=== PATIENT | female | born 1945 | race African-American/Black ===

== ENCOUNTER 2025-03-06 12:57 | Outpatient (AMB) | payer MEDICARE, OTHER, SELFPAY ==
--- NOTE | 2025-03-06 12:59 | AM.OFFVISMDC ---
Intake Vital Signs 03/06/25 13:09 Height 5 ft 4 in Weight 149 lb 4 oz BMI 25.6 BP 124/66 Blood Pressure Location Lt brachial Position Sitting Respiration 16 Pulse 72 Pulse Source Pulse Oximeter Temp 97.1 F Temp Source Temporal Artery Scan Pulse Oximetry (%) 97 Oxygen Delivery Method Room Air Intake Visit Reasons: Annual JOSE-Satya pt, medicare wellness visit Senior It Engineer Required: No Accompanied by: Self / Same As Patient Allergies colistimethate sodium (From Coly-Mycin M) Allergy (Intermediate, Verified 03/06/25 13:05) Swelling nickel Allergy (Intermediate, Verified 03/06/25 13:08) Rash amoxicillin Adverse Reaction (Intermediate, Verified 03/06/25 13:08) Diarrhea fexofenadine (From Ruth) Adverse Reaction (Intermediate, Verified 03/06/25 13:08) Back Pain nuts Allergy (Severe, Uncoded 03/06/25 13:08) Anaphylaxis Medication List - Last Reconciled 03/06/25 by Tana Hernadez MD allopurinol 100 mg PO BID famotidine (Pepcid AC) 10 mg PO DAILY losartan-hydrochlorothiazide 50-12.5 mg 1 tab PO DAILY HPI HPI Comments History of Present Illness Details The patient is a 79 year old individual presenting to [facility] and for a Medicare wellness visit. Health Risk Assessment Completed. No cognitive deficits, no opioid use. Action Tremor: The patient reports developing shaky handwriting in both the right and left hands over the past few months, making it difficult to write legibly. The patient experiences physical nervousness and shakiness when preparing to sign their name, which is exacerbated by feeling anxious or being watched, leading to avoidance of signing documents in public. The patient does not experience shakiness when performing other fine motor tasks like lifting a cup or buttoning a shirt. Anxiety and Stress: The patient reports that her mood has been 'so-so' due to significant worry about their 14-year-old great-granddaughter's unstable and concerning living environment. This stress stays on the patient's mind constantly, causing the patient to wake up thinking about it. The patient engages in ministry work and walking, and has a supportive friend network. Constipation: The patient reports that MiraLax was not working well for constipation, so the patient switched to Metamucil, which has been very effective. The patient initially took it daily but now requires it less often as their bowel movements have regulated. Gout: The patient has a history of gout and reports no recent flares. The patient is taking allopurinol for management. Hypertension: The patient has a history of hypertension. The patient denies any recent headaches. Prediabetes: The patient has a history of borderline high blood sugars in the prediabetic range. Low Back Pain: The patient reports another problem of pain in the lower back, specifically on the left side, which was attributed to arthritis by a chiropractor. The patient describes the pain as sometimes feeling tight and stiff, and sees a chiropractor for it approximately every six weeks. Updates to Surgical History: - Right carpal tunnel surgery on November 27 done at [facility] Family History: - Denies any known family history of Parkinson's disease. [facility], [facility] Medical History (Updated 03/06/25 @ 17:29 by Tana Hernadez MD) Routine medical exam Worsened handwriting Micrographia Gout Cerebral arterial aneurysm Impaired fasting glucose Osteoarthritis Primary hypertension Surgical History (Updated 03/06/25 @ 12:54 by Tana Hernadez MD) H/O right knee surgery S/P MONTY-BSO History of appendectomy Family History (Updated 03/06/25 @ 12:55 by Tana Hernadez MD) Father Brain tumor Sister Breast cancer Bladder cancer Other Diabetes mellitus Primary hypertension Questionnaire Medicare Wellness Checkup What [age]?: [age] What gender do you identify with?: female During the past 4 weeks, how much have you been bothered by emotional problems such as feeling anxious, depressed, irritable, sad or downhearted, and blue?: moderately During the past 4 weeks, has your physical & emotional health limited your social activities with family, friends, neighbors, or groups?: not at all During the past 4 weeks, how much bodily pain have you generally had?: mild pain During the past 4 weeks, was someone available to help you if you needed & wanted help?: no, not at all During the past 4 weeks, what was the hardest physical activity you could do for at least 2 minutes?: moderate Can you get to places out of walking distance without help? (For eg., can you travel alone on buses, taxis or drive your car?): Yes Can you go shopping for groceries or clothes without someone's help?: Yes Can you prepare your own meals?: Yes Can you do your housework without help?: Yes Because of any health problems, do you need the help of another person with your personal care needs such as eating, bathing, dressing or getting around the house?: No Can you handle your own money without help?: Yes During the past 4 weeks, how would you rate your health in general?: good During the past 4 weeks how have things been going for you?: pretty well Are you having difficulties driving your car?: no Do you always fasten your seat belt when you are in a car?: yes, usually During past 4 weeks, have you been bothered by the following: never: Falling or dizzy when standing up, Sexual problems?, Trouble eating well?, Teeth or denture problems? and Problems using the telephone? and seldom: Tiredness or fatigue? Have you fallen 2 or more times in the past year?: No Are you afraid of falling?: Yes Are you a smoker?: no During the past 4 weeks, how many drinks of wine, beer, or other alcoholic beverages did you have?: no alcohol at all Do you exercise for about 20 minutes 3 or more times a week?: yes, most of the time Have you been given information to help with the following?: yes: Hazards in your house that might hurt you? and yes: Keeping track of your medications? How often do you have trouble taking medicines the way you have been told to take them?: I always take medicine as prescribed How confident are you that you can control & manage most of your health problems?: somewhat confident What is your race?: Black or PHQ-9 Over the last 2 weeks, how often have you been bothered by any of the following problems? 1. Little interest or pleasure in doing things: more than half the days 2. Feeling down, depressed, or hopeless: not at all 3. Trouble falling or staying asleep, or sleeping too much: not at all 4. Feeling tired or having little energy: not at all 5. Poor appetite or overeating: not at all 6. Feeling bad about yourself - or that you are a failure or have let yourself or your family down: not at all 7. Trouble concentrating on things, such as reading the newspaper or watching television: not at all 8. Moving or speaking so slowly that other people could have noticed. Or the opposite - being so fidgety or restless that you have been moving around a lot more than usual: not at all 9. Thoughts that you would be better off or of hurting yourself in some way: not at all Total score: 2 Depression Screening Interpretation: Negative Depression Screening Done: Yes 88506 - PHQ-9 Billing: Yes Source: Developed by Drs. Mohamud Flores, Diane Antoine, Keith Trinidad and colleagues, with an educational jadiel from [employer]. Thrive Questionnaire Date Thrive assessed: 03/06/25 I am a: Patient What is your living situation today?: I have a steady place to live Within the past 12 months, did the food you bought not last and you didn't have the money to get more?: Never true Within the past 12 months, did you worry whether your food would run out before you got money to buy more?: Never true Do you have trouble paying for medicines?: No Do you have trouble getting transportation to medical appointments?: No Do you have trouble paying your heating and electricity bill?: No Do you have trouble taking care of your child, family member or friend?: No Do you have trouble with day-to-day activities such as bathing, preparing meals, shopping, managing finances, etc.?: No Are you currently unemployed and looking for a job?: No Are you interested in more education?: No Please select the resources that you would like help with: Utilities and None Currently or been in a relationship where the following occur: No concerns reported THRIVE Score: 0 CHRISTEN-7 AMB Questionnaire CHRISTEN-7 Date CHRISTEN - 7 assessed: 03/06/25 Feeling nervous, anxious, or on edge: 0 = Not at all Not being able to stop or control worryin = Not at all Worrying too much about different things: 0 = Not at all Trouble relaxin = Not at all Being so restless that it is hard to sit still: 0 = Not at all Becoming easily annoyed or irritable: 0 = Not at all Feeling afraid as if something awful might happen: 0 = Not at all Total CHRISTEN-7 score (0-4 normal; 5-9 mild; 10-14 moderate; 15-21 severe): 0 Source: Developed by Drs. Mohamud Flores, Diane Antoine, Keith Trinidad and colleagues, with an educational jadiel from [employer]. AUDIT C Alcohol Use Questionnaire (AUDIT-C) 1. How often do you have a drink containing alcohol?: Monthly or less 2. How many drinks containing alcohol do you have on a typical day when you are drinking?: 1 or 2 3. How often do you have six or more drinks on one occasion?: Never Total Score: 1 Review of Systems Narrative Review of Systems - Gastrointestinal: Reports constipation, which is managed with Metamucil. - Denies abdominal pain. - Cardiovascular: Denies shortness of breath, chest pain, and leg swelling. - Psychiatric: per hpi - Neurological: Reports shaky handwriting in both hands for the past few months, which is worse under pressure. - Denies headaches, trouble swallowing, or issues with concentration. - Musculoskeletal: Reports residual pain in the right hand post-surgery and pain in the left lower back. Physical Exam Exam Exam: Physical Exam - Cognitive: Clock draw test was excellent. - Patient recalled 3/3 words. - Lungs: Clear to auscultation bilaterally, no wheezing. - Cardiovascular: Normal heart sounds with a very soft murmur. - Carotid arteries were clear with no bruits. - Abdomen: Soft, non-tender, non-distended, with normal bowel sounds. - Neurological: No resting tremor on hand extension. - Action tremor noted with writing. - Musculoskeletal: Tenderness to palpation of the left lower paraspinal muscles. - Extremities: No edema in the lower extremities. Vital Signs: Last Vital Signs Temp 97.1 F 03/06/25 13:09 Pulse 72 03/06/25 13:09 Resp 16 03/06/25 13:09 BP 124/66 03/06/25 13:09 Pulse Ox 97 03/06/25 13:09 Oxygen Delivery Method Room Air 03/06/25 13:09 BMI result Body Mass Index 25.6 Assessment & Plan Assessment & Plan (1) Routine medical exam: Code(s): Z00.00 - Encounter for general adult medical examination without abnormal findings (2) Primary hypertension: Code(s): I10 - Essential (primary) hypertension (3) Impaired fasting glucose: Code(s): R73.01 - Impaired fasting glucose (4) Gout: Code(s): M10.9 - Gout, unspecified Qualifiers: Gout site: unspecified site Gout etiology: unspecified cause Chronicity: unspecified Qualified Code(s): M10.9 - Gout, unspecified Plan Assessment and Plan 1. Medicare Wellness Visit/Health Maintenance - Plan includes ordering fasting labs for diabetes and cholesterol screening, as well as checking kidney function, liver function, and blood counts. - A urine microalbumin test will also be ordered. - Will follow up in 6 months, or sooner if needed. 2. Action Tremor - The patient reports a new onset of shaky handwriting in both hands for several months, which is causing distress and is worse with pressure or anxiety. - A referral will be placed to neurology for further evaluation by a movement disorder specialist. 3. Hypertension - Stable. - The patient will continue the current regimen of losartan-HCTZ 50/12.5 mg daily. 4. Gout - Well-controlled with no recent flares. - The patient will continue allopurinol 100 mg twice daily 5. Constipation - Well-managed. - The patient will continue using Metamucil as needed. 6. Low Back Pain - The patient has tenderness in the left lower paraspinals, possibly due to muscle spasm or arthritis. - Recommended conservative management with heating pads, stretching, and topical rubs. - The patient will continue with inpatient care manager rn and monitor for worsening symptoms. 7. Heart Murmur - An incidental finding of a very soft, benign-sounding murmur was noted on exam. - Educated the patient on the finding and red flag symptoms (shortness of breath, chest pain, leg swelling) for which to seek care. - No further workup is needed at this time. Plan - Orders placed for fasting labs, including a lipid panel, diabetes screening (A1c), kidney function, liver function, and a complete blood count. - An order for a urine microalbumin test will also be placed. - Referral to Neurology for evaluation of a new-onset action tremor and shaky handwriting. - Continue allopurinol 100 mg twice daily for gout. - Continue losartan-hydrochlorothiazide 50/12.5 mg daily for hypertension. - Continue famotidine (Pepcid) as needed for heartburn. - Continue Metamucil as needed for constipation. - Follow up in 6 months Discussion Notes We discussed the patient's new complaint of shaky handwriting. I explained that this warrants further investigation and that I will be placing a referral to a neurology. I outlined the plan for laboratory testing, including fasting bloodwork to screen for diabetes and cholesterol, and to check kidney and liver function, as well as a urine test. Patient Instructions - Please call your former orthopedic and surgical offices (from [facility] and [facility]) and ask them to fax all your records to our office. - You will need to get fasting blood work done. - Please do not eat or drink anything except water for 8-10 hours before the test. - For your low back pain, you may use heating pads, do gentle stretching, and apply topical rubs. - Call the office if you experience new or worsening shortness of breath, chest pain, or leg swelling. Orders: Orders Comprehensive Met. Panel Today I10 - Essential (primary) hypertension, M10.9 - Gout, unspecified, R73.01 - Impaired fasting glucose Complete Blood Count Auto Diff Today I10 - Essential (primary) hypertension, M10.9 - Gout, unspecified, R73.01 - Impaired fasting glucose Lipid Panel Today I10 - Essential (primary) hypertension, M10.9 - Gout, unspecified, R73.01 - Impaired fasting glucose Hemoglobin A1c Today I10 - Essential (primary) hypertension, M10.9 - Gout, unspecified, R73.01 - Impaired fasting glucose Uric Acid Today I10 - Essential (primary) hypertension, M10.9 - Gout, unspecified, R73.01 - Impaired fasting glucose Microalbumin, Random (w Creat) Today I10 - Essential (primary) hypertension, M10.9 - Gout, unspecified, R73.01 - Impaired fasting glucose TSH reflex Free T4 Today I10 - Essential (primary) hypertension, M10.9 - Gout, unspecified Referrals Neurology Referral R27.8 - Other lack of coordination Medications: New losartan-hydrochlorothiazide 50-12.5 mg 1 tab PO DAILY 90 tabs 3RF psyllium husk (Metamucil) mix into at least 8 oz of water or juice before administering 1 tbsp PO DAILY PRN allopurinol 100 mg PO BID 180 tabs 3RF Quality Reporting (2019) Depression/Bipolar (159/160/161/177) PHQ-9: Total score: 2 Coding Level of Care Code Medicare Subsequent (G0439) Diagnoses Routine medical exam Z00.00 Primary hypertension I10 Impaired fasting glucose R73.01 Gout, unspecified cause, unspecified chronicity, unspecified site M10.9 Gout site: unspecified site Gout etiology: unspecified cause Chronicity: unspecified Additional Codes PHQ-9 - 19853 - PHQ-9 Billing: Yes ([id number])
[2025-03-06 13:09] VITALS: BP 124/66; PULSE 72; RESP 16; TEMP 36.2; O2SAT 97; BMI 25.6
--- OUTSIDE RECORDS SUMMARY | 2025-03-06 13:20 | XMS_ITS | Clinical Summary ---
Author Organization [facility] Address [address] [place] [address] Care Team Providers Care Ctc Operator Name Role Phone Tana Hernadez MD Primary Care Provider [phone] Allergies No known active allergies Medications HYDROcodone-sasha taminophen (NORCO) 5-325 mg per tabletIndicatio ns:Carpal tunnel syndrome of right wrist Take 1 tablet by mouth 4 times daily (every 6 hours) as needed for severe pain. Max Daily Amount: 4 tablets 10 tablet 11/26/2024 Active Encounters Date Type Department Care Team Description 01/21/2025 11:00 AM [place] [address] Massimo Villegas MD Carpal tunnel syndrome of right wrist (Primary Dx) 12/10/2024 11:15 AM [place] [address] Lisseth Miller PA Carpal tunnel syndrome of right wrist (Primary Dx) from Last 3 Months Social History Tobacco Use Types Packs/Day Years Used Date Smoking Tobacco: Never Assessed Comments Unknown Sex and Gender Information Value Date Recorded Sex Assigned at Female 09/25/2024 1:54 PM EDT Legal Sex Female 1:16 PM EDT Gender Identity Female 09/25/2024 1:54 PM EDT Sexual Orientation Asexual 09/25/2024 1: 54 PM EDT Plan of Treatment Health Maintenance Due Date Last Done Comments Advance Care Planning 1945 Hepatitis C Virus Screening 1945 DTaP/Tdap/Td Vaccines (1 - Tdap) 1964 Pneumococcal Vaccines 50+ (1 of 1 - PCV) 1995 Zoster (Shingles) Vaccine (1 of 2) 1995 DXA Bone Density (Females,Ages 65 and older) 2010 RSV Vaccine 50 years and older and Patients (1 - 1-dose 75+ series) 2020 Influenza Vaccine 11/14/2024 01/21/2024, , 12/26/2021, Additional history exists COVID-19 Vaccine (2024- season) 2024 06/11/2023, 03/01/2021, 01/21/2021, Additional history exists Hepatitis B Vaccines Aged Out No long er eligible based on patient's age to complete this topic Insurance MEDICARE PART A & B [facility] SUPPLEMENT ONLY Care Teams Ctc Operator Relationship Specialty Start Date End Date Tana Hernadez MD [address] [place] [address] PCP - General Internal Medicine 10/01/24
--- OUTSIDE RECORDS SUMMARY | 2025-03-06 13:20 | XMS_ITS | Encounter Summary ---
Author Organization [facility] Address [address] [address] Phone Care Team Providers Care Wetlands Conservation Laborer Name Role Phone Марина Huerta MD Primary Care Provider Encounter Details Date Type Department Care Team (Late st Contact Info) Description 03/15/2021 Transcribe Orders Virtual Department [address] [place] [id number] Марина [place] [address] [email or web address] Left shoulder pain, unspecified chronicity (Primary Dx) Social History Tobacco Use Types Packs/Day Years Used Date Smoking Tobacco: Never Assessed Comments Unknown Sex and Gender Information Value Date Recorded Sex Assigned at Female 08/11/2022 2:41 PM EDT Legal Sex Female 3:30 PM EST Gender Identity Female 08/11/2022 2:41 PM EDT Sexual Orientation Not on file documented as of this encounter Plan of Treatment Not on file documented as of this encounter Visit Diagnoses Diagnosis Left shoulder pain, unspecified chronicity- Primary documented in this encounter Care Teams Wetlands Conservation Laborer Relationship Specialty Start Date End Date Мар[place] [id number] [email or web address] PCP - General Internal Medicine 03/24/21 documented as of this encounter Additional Source Comments The information contained in this document represents components of the legal health record. It is not the complete legal health record.[facility]
--- OUTSIDE RECORDS SUMMARY | 2025-03-06 13:20 | XMS_ITS | Clinical Summary ---
Author Organization [facility] Address [address] [facility] [address] [place] [address] Phone Care Team Providers Care Sugarcane Planter Name Role Phone Марина Huerta MD Primary Care Provider Allergies Active Allergy Reactions Criticality Noted Date Comments Rlkekdex-Wydeye-Se-Thonzonium 2022 Medications hydroCHLOROthia zide (MICROZIDE) 12.5 mg capsule Take 12.5 mg by mouth daily. Active lidocaine (LIDODERM) 5 % Place 1 patch onto the skin daily. Remove & Discard patch within 12 hours or as directed by MD 30 patch 08/11/2022 Active Social History Tobacco Use Types Packs/Day Years Used Date Smoking Tobacco: Never Assessed Education Answer Date Recorded Are you interested in more education? Not on edin e 08/11/2022 Are you concerned about learning? Not on file 08/11/2022 No 08/11/2022 No 08/11/2022 Digital Access Answer Date Recorded No 09/12/2022 No 09/12/2022 Reliable internet access at home? Not on file 09/12/2022 Device with a working camera? Not on file Intimate Partner Violence Answer Date R ecorded Are you denied basic needs s uch as food, clothing, or medical care? No 08/11/2022 In the past 12 months have y ou been in a relationship with a person who hurts, threatens, or tries to control you? No 08/11/2022 Are you denied basic needs s uch as food, clothing, or medical care? No 08/11/2022 In the past 12 months have y ou been in a relationship with a person who hurts, threatens, or tries to control you? No 08/11/2022 Comments Unknown Sex and Gender Information Value Date Recorded Sex Assigned at Female 08/11/2022 2:41 PM EDT Legal Sex Female 3:30 PM EST Gender Identity Female 08/11/2022 2:41 PM EDT Sexual Orientation Not on file Last Filed Vital Signs Vital Sign Reading Time Taken Comments Blood Pressure 148/72 08/11/2022 7:58 PM EDT Pulse 71 08/11/2022 4:52 PM EDT Temperature 36.3 C (97.3 F) 08/11/2022 3:00 PM EDT Respiratory Rate 18 08/11/2022 7:58 PM EDT Oxygen Saturation 98% 08/11/2022 7:58 PM EDT Inhaled Oxygen Concentration - - Weight 61.2 kg (135 lb) 08/11/2022 2:37 PM EDT Height 162.6 cm (5' 4 ) 08/11/2022 2:37 PM EDT Body Mass Index 23.17 08/11/2022 2:37 PM EDT Plan of Treatment Health Maintenance Due Date Last Done Comments LIPID PANEL 1945 POTASSIUM LEVEL 1945 DEPRESSION SCREENING 1957 SMOKING Hx and SMOKELESS TOBACCO SCREENING 1958 HEPATITIS C SCREENING 1963 ZOSTER VACCINES (1 of 2) 1995 OSTEOPOROSIS SCREENING INITI AL (ONE-TIME) 2010 PNEUMOCOCCAL VACCINES (50+ years) (2 of 2 - PCV) 07/13/2011 07/12/2010 RSV VACCINE (1 - 1-dose 75+ series) 2020 Adult Td,Tdap Booster 01/10/2021 01/10/2011 INFLUENZA VACCINE (#1) 2024 4, 01/28/2013 COVID-19 VACCINE ( - 2024-2 6 season) 2024 HEPATITIS A VACCINES Aged Out No long er eligible based on patient's age to complete this topic HIB VACCINES Aged Out No longer eligi ble based on patient's age to complete this topic MENINGOCOCCAL VACCINES (ACWY) Aged Out No longer eligible based on patient's age to complete this topic MENINGOCOCCAL VACCINES (B) Aged Out N o longer eligible based on patient's age to complete this topic Medical Devices Not on file Insurance [facility] MEDICARE SUPPLEMENT [place] [id number] Care Teams Sugarcane Planter Relationship Specialty Start Date End Date Марина Huerta MD [address] [place] [address] [place] [address] [email or web address] PCP - General Internal Medicine 03/24/21 Additional Source Comments The information contained in this document represents components of the legal health record. It is not the complete legal health record.[facility]
--- OUTSIDE RECORDS SUMMARY | 2025-03-06 13:20 | XMS_ITS | Encounter Summary ---
Author Organization [facility] Address [address] [place] [address] Care Team Providers Care Warning Analyst Name Role Phone Tana Hernadez MD Primary Care Provider +1- [phone] Encounter Details Date Type Department Care Team (Late st Contact Info) Description 11/27/2024 Scanned Document [facility] [address] [id number] Massimo Villegas MD [address] [place] [id number] Social History Tobacco Use Types Packs/Day Years Used Date Smoking Tobacco: Never Assessed Comments Unknown Sex and Gender Information Value Date Recorded Sex Assigned at Female 09/25/2024 1:54 PM EDT Legal Sex Female 1:16 PM EDT Gender Identity Female 09/25/2024 1:54 PM EDT Sexual Orientation Asexual 09/25/2024 1: 54 PM EDT documented as of this encounter Plan of Treatment Not on file documented as of this encounter Visit Diagnoses Not on filedocumented in this encounter Care Teams Warning Analyst Relationship Specialty Start Date End Date Tana Hernadez MD [address] [place] [address] PCP - General Internal Medicine 10/01/24 documented as of this encounter
--- OUTSIDE RECORDS SUMMARY | 2025-03-06 13:20 | XMS_ITS | Clinical Summary ---
Author Organization [facility] Address [address] [place] [address] Care Team Providers Care Developer Prover Upholstering Name Role Phone Tana Hernadez MD Primary Care Provider +1- [phone] Allergies Active Allergy Reactions Criticality Noted Date Comments Amoxicillin Diarrhea 05/11/2021 Colistimethate 08/10/2020 Other reaction(s): Not available Patient denies Fexofenadine 05/11/2021 Other reaction(s): Low back pain Rwaflxxz-Vefskx-Yj-Thonz onium Hives,Swelling,Rash Low 08/11/2022 Swelling in her Ear Nickel Rash Low 11/30/2022 Nuts Anaphylaxis,Hives,O ther (See Comments) High 05/11/2021 peanuts Medications Medication Sig Dispensed Refills Start Date End Date Status allopurinol (ZYLOPRIM) 100 MG tablet 1 tablet (100 mg total) 2 (two) times a day. 0 08/02/2020 Active losartan-hydrochlorot hiazide (HYZAAR) 50-12.5 MG per tablet Take 1 tablet by mouth daily. 0 06/05/2020 Active famotidine (PEPCID) 20 MG tablet Take 1 tablet (20 mg total) by mouth 2 (two) times a day. 0 Active Multiple Vitamin (MULTI VITAMIN DAILY PO) Take by mouth. 0 Active Acetaminophen (TYLENOL ARTHRITIS PAIN PO) Take 2 tablets by mouth every 8 (eight) hours. 0 Active LORazepam (ATIVAN) 0.5 MG tablet TAKE 1 TABLET EVERY DAY BY ORAL ROUTE NEEDED. 0 Active mirtazapine (REMERON) 15 MG tablet TAKE 1/2 TABLET DAILY BY MOUTH 0 05/23/2023 Active Calcium Carb-Cholecalciferol (CALCIUM 600+D3 PO) Take 2 tablets by mouth 2 (two) times a day. 0 Active aspirin EC 81 MG EC tablet Take 1 tablet (81 mg total) by mouth 2 (two) times a day after meals. 56 tablet 0 07/20/2023 Active meloxicam (MOBIC) 7.5 MG tablet Take 1 tablet (7.5 mg total) by mouth daily. 14 tablet 0 07/20/2023 Active methocarbamol (ROBAXIN) 750 MG tablet Take 1 tablet (750 mg total) by mouth every 6 (six) hours as needed. 45 tablet 0 07/20/2023 Active oxyCODONE (ROXICODONE) 5 MG immediate release tablet Take 1 tablet (5 mg total) by mouth every 4 (four) hours as needed. 32 tablet 0 07/20/2023 Active senna-docusate (PERICOLACE) 8.6-50 MG Take 1 tablet by mouth 2 (two) times a day. 20 tablet 0 07/20/2023 Active tranexamic acid (LYSTEDA) 650 MG tablet Take 3 tablets (1,950 mg total) by mouth daily. 6 tablet 0 07/20/2023 Active Active Problems Problem Noted Date Diagnosed Date Osteoarthritis of right knee 07/19/2023 History of gastroesophageal reflux (GERD) 2022 History of hypertension 11/30/2022 Gout 11/30/2022 Anemia 11/30/2022 Osteoarthritis of left knee 11/30/2022 Nonruptured cerebral aneurysm 11/30/2022 Family History Medical History Relation Name Comments Diabetes Brother Diabetes Mother Cancer Sister Relation Name Status Comments Brother Father (Age 30's) brain tu mor Mother (Age 86) MVA Sister Social History Tobacco Use Types Packs/Day Years Used Date Smoking Tobacco: Never Smokeless Tobacco: Never Tobacco Cessation:Counseling Given: Not Answered Alcohol Use Standard Drinks/Week Comments Not Currently 0 (1 standard drink = 0.6 oz pur e alcohol) Sex and Gender Information Value Date Recorded Sex Assigned at Female 11/23/2022 9:30 AM EDT Gender Identity Female 11/23/2022 9:30 AM EDT Sexual Orientation Not on file Job Start Date Occupation Industry Not on file Not on file Not on file Last Filed Vital Signs Vital Sign Reading Time Taken Comments Blood Pressure 133/68 07/20/2023 7:49 AM EDT Pulse 73 07/20/2023 7:49 AM EDT Temperature 36.8 C (98.2 F) 07/20/2023 7:49 AM EDT Respiratory Rate 17 07/20/2023 7:49 AM EDT Oxygen Saturation 98% 07/20/2023 7:49 AM EDT Inhaled Oxygen Concentration - - Weight 61.7 kg (136 lb) 07/19/2023 7:45 AM EDT Height 156.2 cm (5' 1.5 ) 07/19/2023 7:45 AM EDT Body Mass Index 25.28 07/19/2023 7:45 AM EDT Plan of Treatment Health Maintenance Due Date Last Done Comments Hepatitis C Screening 1945 COVID-19 Vaccine (#1) 1945 Depression Screening 1957 Preventative Health Evaluation 1963 Shingrix-Zoster Vaccine (1 o f 2) 1995 Fall Risk Assessment 2010 Osteoporosis Screening (DEXA Scan) 2010 DTap / Tdap / Td (1 - Tdap) 01/11/2011 01/10/2011 Pneumococcal Vaccine (2 of 2 - PCV) 07/13/2011 07/12/2010 RSV Adult > 60+ Yrs or (1 - 1-dose 75+ series) 2020 Influenza Vaccine (#1) 2024 4, 01/28/2013 Hepatitis B Vaccines Aged Out No long er eligible based on patient's age to complete this topic RSV Ped < 20 months Aged Out No longe r eligible based on patient's age to complete this topic Medical Devices Implanted Type Area Workforce Development Assistant Device Identifier Shelf Expiration Date Model / Serial / Lot Journey Nonporpus Tibial Baseplate Size 2, Left Implanted:Qty : 1 on 12/25/2022 by Jair Elizondo MD [place] [facility] [place] [facility] Total Joint Left: Knee [id number] 03/31/2032 / / [id number] Journey Ii Size 3-4 , Right 10mm Deep [facility] Articular Insert Implanted:Qty : 1 on 07/19/2023 by Jair Elizondo MD at [facility] [place] [facility] Total Joint Right: Knee [id number] 12/17/2032 / / [id number] Cement Bone Surg Simplex Radiopq Stry-Howm 7863-5-201-11 4092 - [id number] Implanted:Qty : 1 on 12/25/2022 by Jair Elizondo MD at [facility] [place] [facility] Left: Knee [employer] [id number] 02/13/2025 6191- / / [id number] Cement Bone Surg Simplex Radiopq Stry-How 5990-2-554-11 409 - [id number] Implanted:Qty : 1 on 12/25/2022 by Jair Elizondo MD at [facility] [place] [facility] Left: Knee [employer] [id number] 02/13/2025 6191- / / [id number] Knee Patella Ovl 29x8.5mm [facility] [id number] 60 - [id number] Implanted:Qty : 1 on 12/25/2022 by Jair Elizondo MD at [facility] [place] [facility] Left: Knee [employer] [id number] 06/27/2032 [id number] / / [id number] Cr Fem Ox Pot Puncher Lt Sz 4 [facility] [id number] 13 - [id number] Implanted:Qty : 1 on 12/25/2022 by Jair Elizondo MD at [facility] [place] [facility] Left: Knee [employer] [id number] 01/12/2030 [id number] / / [id number] Journey Deep [facility] Articular Insert Implanted:Qty : 1 on 12/25/2022 by Jair Elizondo MD at [facility] [place] [facility] Left: Knee [employer] 07/21/2028 [id number] / / [id number] Cr Fem Ox Pot Puncher Rt Sz 3 [facility] 98793232-9729 09 - [id number] Implanted:Qty : 1 on 07/19/2023 by Jair Elizondo MD at [facility] [place] [facility] Right: Knee [employer] [id number] 11/05/2032 [id number] / / [id number] Knee Patella Ovl 29x8.5mm [facility] [id number] 60 - [id number] Implanted:Qty : 1 on 07/19/2023 by Jair Elizondo MD at [facility] [place] [facility] Right: Knee [employer] [id number] 03/12/2033 [id number] / / [id number] Knee Bsplt Tib Jrny Npor Rt 3 [facility] 73962767-9102 35 - [id number] Implanted:Qty : 1 on 07/19/2023 by Jair Elizondo MD at [facility] [place] [facility] Right: Knee [employer] 03/02/2033 [id number] / / [id number] Cement Bone Surg Simplex Radiopq Stry-Howm 8197-3-337-11 4092 - [id number] Implanted:Qty : 1 on 07/19/2023 by Jair Elizondo MD at [facility] [place] [facility] Right: Knee [employer] [id number] 04/15/2025 6191-1-010 / / [id number] Cement Bone Surg Simplex Radiopq Stry-Howm 8297-7-491-11 4092 - [id number] Implanted:Qty : 1 on 07/19/2023 by Jair Elizondo MD at [facility] [place] [facility] Right: Knee [employer] [id number] 04/15/2025 6191-1-010 / / [id number] Explanted Type Area Workforce Development Assistant Device Identifier Shelf Expiration Date Model / Serial / Lot Journey Articular Insert Explanted:Qty: 1 on 12/25/2022 by Jair Elizondo MD at [facility] [place] [facility] Left: Knee [employer] 07/15/2023 [id number] / / [id number] Advance Directives For more information, please contact: [phone] Documents on File Type Date Recorded Patient Tank Operator Expl anation Advance Directive and Living Will 11/30/2022 12:00 AM Health Care Proxy Advance Directive and Living Will 12/25/2022 HEALTH CARE PROXY NO BLOOD PRODUCTS JEHOVAH WITNESS Latest Code Status on File Code Status Date Activated Date Inactivated Comments Full Code 07/19/2023 8:07 AM 07/20/2023 8:35 PM This co de status was ascertained in the following way: discussion with patient . Code Status History Code Status Date Activated Date Inactivated Comments Full Code 07/19/2023 7:10 AM 07/19/2023 8:07 AM This co de status was ascertained in the following way: discussion with healthcare technical services representative . Full Code 12/25/2022 2:00 PM 12/27/2022 1:30 AM This code status was ascertained in the following way: discussion with patient . Full Code 12/25/2022 7:56 AM 12/25/2022 2:00 PM This code status was ascertained in the following way: discussion with patient . Care Teams Developer Prover Upholstering Relationship Specialty Start Date End Date Tana Hernadez MD [address] [place] [address] PCP - General Internal Medicine 07/18/23
--- OUTSIDE RECORDS SUMMARY | 2025-03-06 13:20 | XMS_ITS | Clinical Summary ---
Author Organization [facility] Address [address] [place] [address] Care Team Providers Care Shearer Operator Name Role Phone Tana Hernadez MD Primary Care Provider +1- [phone] Surgical History Surgery Date Site/Laterality Comments KNEE SURGERY PROCEDURE:KNEE SURGERY APPENDECTOMY PROCEDURE:APPENDECTOMY HYSTERECTOMY PROCEDURE:HYSTERECTOMY TOTAL KNEE ARTHROPLASTY 12/25/2022 Left PROCEDURE:TOTAL KNEE ARTHROPLASTY;COMMENT:Procedur e: REPLACEMENT TOTAL KNEE; Surgeon: Jair Elizondo MD; [facility] Service: Orthopedics; Laterality: Left; COLONOSCOPY PROCEDURE:COLONOSCOPY UPPER GASTROINTESTINAL ENDOSCOPY PROCEDURE:UPPER GASTROINTESTINAL ENDOSCOPY TOTAL KNEE ARTHROPLASTY 07/19/2023 Right PROCEDURE:TOTAL KNEE ARTHROPLASTY;COMMENT:Procedur e: TOTAL KNEE ARTHROPLASTY WITH CORI NAVIGATION; Surgeon: Jair Elizondo MD; Location: [facility]); Service: Orthopedics; Laterality: Right; Medical History Medical History Date Comments Anemia DX:Anemia Gout DX:Gout Hypertension DX:Hypertension Osteoporosis DX:Osteoporosis GERD (gastroesophageal reflux disease) DX:GERD (gastroesophageal reflux disease) Nonruptured cerebral aneurysm DX :Nonruptured cerebral aneurysm;COMMENT:dx 8 years ago Peripheral neuropathy DX:Periphe ral neuropathy;COMMENT:right hand Family History Medical History Relation Name Comments Diabetes Brother Diabetes Mother Cancer Sister Relation Name Status Comments Brother Father (Age 30's) brain tu mor Mother (Age 86) MVA Sister Social History Tobacco Use Types Packs/Day Years Used Date Smoking Tobacco: Never Smokeless Tobacco: Never Alcohol Use Standard Drinks/Week Comments Not Currently 0 (1 standard drink = 0.6 oz pur e alcohol) Comments Unknown Sex and Gender Information Value Date Recorded Sex Assigned at Not on file Legal Sex Female 2:07 PM EST Gender Identity Not on file Sexual Orientation Not on file Obstetrics History Last Filed Vital Signs Vital Sign Reading Time Taken Comments Blood Pressure 156/60 06/28/2023 10:41 AM EDT Sitting Right arm Pulse 72 06/28/2023 10:41 AM EDT Temperature - - Respiratory Rate - - Oxygen Saturation - - Inhaled Oxygen Concentration - - Weight 63.5 kg (140 lb) 06/28/2023 10:4 1 AM EDT Height 159 cm (5' 2.6 ) 06/28/2023 10:4 1 AM EDT Body Mass Index 25.12 06/28/2023 10:41 AM EDT Plan of Treatment Health Maintenance Due Date Last Done Comments DTaP,Tdap,and Td Vaccines (1 - Tdap) 1964 Pneumococcal Vaccine: 50+ Ye ars (1 of 1 - PCV) 1995 Zoster Vaccines (1 of 2) 1995 RSV Immunization Adult Patie nts (1 - 1-dose 75+ series) 2020 Falls Risk Assessment 03/15/2022 Hepatitis C Screening 03/15/2022 Osteoporosis Screening (Bone Density Screening) 03/15/2022 Social Influencers of Health Screening 03/15/2022 Depression Screening 04/16/2024 COVID-19 Vaccine (1 - 2024-2 6 season) 2024 Influenza Vaccine (#1) 2024 HIB Vaccines Aged Out No longer eligi ble based on patient's age to complete this topic HPV Vaccines Aged Out No longer eligi ble based on patient's age to complete this topic Hepatitis A Vaccines Aged Out No long er eligible based on patient's age to complete this topic Hepatitis B Vaccines Aged Out No long er eligible based on patient's age to complete this topic IPV Vaccines Aged Out No longer eligi ble based on patient's age to complete this topic MMR Vaccines Aged Out No longer eligi ble based on patient's age to complete this topic Meningococcal ACWY Vaccine Aged Out N o longer eligible based on patient's age to complete this topic Meningococcal B Vaccine Aged Out No l onger eligible based on patient's age to complete this topic RSV Immunization Patients Un isra 20 months Aged Out No longer eligible b ased on patient's age to complete this topic Varicella Vaccines Aged Out No longer eligible based on patient's age to complete this topic Medical Devices Implanted Type Area Dental Professional Device Identifier Shelf Expiration Date Model / Serial / Lot Journey Nonporpus Tibial Baseplate Size 2, Left Implanted:Qty : 1 on 12/25/2022 by Jair Elizondo MD Joints Left: Knee [id number] 03/31/2032 / / [id number] Journey Ii Size 3-4 , Right 10mm Deep [facility] Articular Insert Implanted:Qty : 1 on 07/19/2023 by Jair Elizondo MD Joints Right: Knee [id number] 12/17/2032 / / [id number] Cement Bone Surg Simplex Radiopq Stry-Howm 7621-8-301- 409 Implanted:Qty : 1 on 12/25/2022 by Jair Elizondo MD Left: Knee [employer] [id number] 02/13/2025 6191- / / [id number] Cement Bone Surg Simplex Radiopq Stry-Howm 5464-3-465- 4092 Implanted:Qty : 1 on 12/25/2022 by Jair Elizondo MD Left: Knee [employer] [id number] 02/13/2025 6191- / / [id number] Knee Patella Ovl 29x8.5mm [facility] [id number] 60 Implanted:Qty : 1 on 12/25/2022 by Jair Elizondo MD Left: Knee [employer] [id number] 06/27/2032 [id number] / / [id number] Cr Fem Ox Well Tender Lt Sz 4 [facility] [id number] 13 Implanted:Qty : 1 on 12/25/2022 by Jair Elizondo MD Left: Knee [employer] [id number] 01/12/2030 [id number] / / [id number] [facility] Deep [facility] Articular Insert Implanted:Qty : 1 on 12/25/2022 by Jair Elizondo MD Left: Knee [employer] 07/21/2028 [id number] / / [id number] Knee Patella Ovl 29x8.5mm [facility] [id number] 60 Implanted:Qty : 1 on 07/19/2023 by Jair Elizondo MD Right: Knee [employer] [id number] 03/12/2033 [id number] / / [id number] Knee Bsplt Tib Jrny Npor Rt 3 [facility] [id number] 35 Implanted:Qty : 1 on 07/19/2023 by Jair Elizondo MD Right: Knee [employer] 03/02/2033 [id number] / / [id number] Cement Bone Surg Simplex Radiopq Stry-Howm 8360-6-259-11 4092 Implanted:Qty : 1 on 07/19/2023 by Jair Elizondo MD Right: Knee [employer] [id number] 04/15/2025 6191- / / [id number] Cement Bone Surg Simplex Radiopq Stry-Howm 9222-4-406-11 4092 Implanted:Qty : 1 on 07/19/2023 by Jair Elizondo MD Right: Knee [employer] [id number] 04/15/2025 6191-010 / / [id number] Cr Fem Ox Well Tender Rt Sz 3 [facility] [id number] 09 Implanted:Qty : 1 on 07/19/2023 by Jair Elizondo MD Right: Knee [employer] [id number] 11/05/2032 [id number] / / [id number] Advance Directives Documents on File Type Date Recorded Patient Broadband Engineer Expl anation Health Care Decision (hx) 12/25/2022 ADVANCE DIRECTIVE AN D LIVING WILL Health Care Decision (hx) 11/30/2022 ADVANCE DIRECTIVE Care Teams Shearer Operator Relationship Specialty Start Date End Date Tana Hernadez MD [address] [place] [address] PCP - General 07/18/23
--- OUTSIDE RECORDS SUMMARY | 2025-03-06 13:20 | XMS_ITS | Data Portability ---
Author Organization [place] [facility] Deyanira Guidry AONE Boaz Address [address] [place] [address] Care Team Providers Care Perioperative Nurse Name Role Phone FERNANDEZ MILLER Primary Care Provider Assessment Encounter Date Assessment Date Assessment LastModified by Organization Details LastModified Time 07/12/2023 07/12/2023 Patient opted fo r a video visit because it is clinically appropriate for the information reviewed and meets the patient's technological ability and equipment access. I confirmed patient identity verbally and they were advised about video/telephone delivery of care, HIPAA privacy and risk of communicating over appropriate video capable devices. The use of audio-only or video telecommunication technology is consistent with state and federal requirements. Patient stated understanding of the limitation of the treatment provided via audio/video and consents to this visit today. Patient stated they are comfortable that they are in a quiet and private location to speak freely about their health. The patient understands that today's visit will be submitted to the patient's insurance and may incur a co-pay or deductible. Patient is scheduled for right total knee arthroplasty at [facility]. They have significant joint pain, dysfunction and disability that impact many of their activities of daily living. They have failed to respond to alternate, conservative treatment measures. Physical Exam: Patient is located at their home. The patient's calculated BMI is 25.1. Patient is awake, alert and oriented to person, place and time. They are interacting appropriately with this examiner. They are asking and answering questions appropriately. Speech is clear and intelligible. Gross observation of eye and facial movements do no indicate any significant neurologic dysfunction. After careful review of patient history and their individual risk factors for infection, they will not require additional antibiotic coverage after surgery. It has been determined that ASA is the appropriate medication for the prevention of DVT/PE. The patient wishes to be admitted to the hospital overnight. The patient's pharmacy of choice is located in the [facility]. All questions were answered to the patient's satisfaction. More than twenty total minutes have been spent on this patient encounter plus a review of relevant imaging tests, medical history, medication lists, and medical clearance documents. This patient was seen and evaluated by Kiet Banuelos MS, PA-C in indirect conjunction with documenting/supervi sing provider Jair Elizondo MD. He agrees with history, physical examination, tests/diagnostic imaging, and treatment plan. Not available 07/12/2023 13:03:54 07/31/2023 07/31/2023 HPI : Patient is doing well 2 weeks status post right total knee arthroplasty. They deny fever, chest pain and shortness of breath. They are compliant with anticoagulation protocol. She is compliant with aspirin for DVT prophylaxis. She has been doing physical therapy at home regularly and has plans to switch over to outpatient physical therapy in [place] soon. She denies chest pain and shortness of breath or fever. She recognizes persistent swelling and discomfort. Overall she has not encountered any problems. Physical Exam : Patient is well nourished, well- developed, in no acute distress, with appropriate mood and affect. The patient demonstrates good knee strength. The incision is clean and dry with no sign of infection. Negative calf tenderness and Neto's sign. Range of motion is from 0-85 degrees. Assessment/Plan : The patient is doing well 2 weeks from knee arthroplasty. Continue 28 day course of anticoagulation therapy. The patient will do physical therapy and return for follow-up in 1 month for re-evaluation; sooner with any problems. This patient was seen and evaluated by Kiet Banuelos MS, PA-C in indirect conjunction with documenting/Syandusi sing provider Jair Elizondo MD. He agrees with history, physical examination, tests/diagnostic imaging, and treatment plan. Not available 07/31/2023 16:34:31 08/28/2023 08/28/2023 HPI : Patient is here for a 6 week follow-up from a left TKA. She is recovering well. She still has some nighttime pain. She is working with physical therapy. She is continuing to get improvements in flexion. Physical Exam : Patient is well nourished, well- developed, in no acute distress, with appropriate mood and affect. The patient is AAOx3. The patient demonstrates good knee motion and strength. The incision is well healed. Range of motion of the left knee is 0 to 95 degrees. Assessment/Plan : The patient is functioning well 6 weeks from total knee arthroplasty. We discussed continue to work on knee flexion. She notes that she is continually getting improvements at PT. We discussed goals for kene flexion. She will continue physical therapy, and will let us know if she does not get improvement she wants. She will return for follow-up in 2 months with x-rays at that time. [email or web address] Not available 08/28/2023 14:22:45 10/26/2023 10/26/2023 HPI : Patient is here for 3-month follow-up from right total knee replacement. She has recovered very well. She reports really 0 pain. She reports good function. She is walking without an assistive device. She is curious about any restrictions she can have. She is still doing physical therapy. P fide reports good pain relief in the knee and satisfactory nondenominational of function in terms of activities of daily living. Physical Exam : Patient is well nourished, well-developed, in no acute distress, with appropriate mood and affect. The patient is oriented to time, place, and person. Respirations are even and unlabored. There is no inguinal adenopathy. Examination of the contralateral knee shows normal range of motion, strength, no tenderness, and well-healed skin incision. The affected limb is well-perfused, with well healed skin incision. The patient demonstrates good knee motion, stability, and strength. The knee moves from 0-120 degrees. The alignment of the knee is neutral. Muscle strength is normal. Pedal pulses are palpable. Hip examination, including flexion and internal rotation, was negative in that groin pain was not produced. Assessment/Plan : This patient is functioning well 3 month(s) after RIGHT total knee arthroplasty. Continue knee conditioning exercises. Uajn-ehc-hesfjng medications as needed. Ultimate failure may occur due to mechanical wear, loosening or breakage. Follow-up is recommended to assess for the possibility of failure. Follow-up at 1 year from surgery with repeat x-rays of the bilateral knees at that time. Not available 10/26/2023 14:46:46 07/24/2024 07/24/2024 HPI : Patient is here for 1 year follow-up for a right total knee replacement. Deyanira elizalde reports good pain relief in the knee and satisfactory nondenominational of function in terms of activities of daily living. Current condition is improved relative to their pre operative condition. They have not encountered any major problems since their last office visit. She is very pleased with the results of her right sided total knee arthroplasty and her decision to have joint replacement. She has not encountered any problems since the last visit to the office. She reports that she is capable of kneeling but that it feels strange. She is back to a high level of comfort and function. Physical Exam : Patient is well nourished, well-developed, in no acute distress, with appropriate mood and affect. The patient is oriented to time, place, and person. Respirations are even and unlabored. The affected limb is well-perfused, with well healed skin incision. The patient demonstrates good knee motion, stability, and strength. The knee moves from 0-100 degrees. Muscle strength is normal. Pedal pulses are palpable. X-Ray: Five view x-ray study of the postoperative knee(s) obtained during today's office encounter does not show any signs of implant related issues including loosening, malposition, instability, periprosthetic fracture, periosteal reaction or infection. Assessment/Plan : This patient is functioning well after knee arthroplasty. Continue knee conditioning exercises. Bkgi-fzu-wxdgxkc medications as needed. The patient understands that ultimate failure may occur due to mechanical wear, loosening or breakage. Follow-up at approximately five year post-op is recommended to assess for the possibility of failure. Follow up sooner with any problems. At least 25 minutes were spent reviewing previous charting and radiographs, obtaining history and physical exam, and reviewing treatment plan. This patient was seen and evaluated by Kiet Banuelos MS, PA-C in indirect conjunction with documenting/supervi sing provider Jair Elizondo MD. He agrees with history, physical examination, tests/diagnostic imaging, and treatment plan. [email or web address] Not available 07/24/2024 12:00:05 Plan of Treatment Reminders Order Date Submit Date Provider Last Modified By Organization Details Last Modified Time Details Appointments None record ed. Lab None record ed. Referral None record ed. Procedures None record ed. Surgeries None record ed. Imaging XR, knee, 3 view 025 07/25/19 25 [email or web address] [facility], [address], [place], [address], 5 12:01:41 XR, knee, 3 view 024 10/26/19 24 [email or web address] [facility], [address], [place], [address], 4 15:34:33 Medication Orders None record ed. Patient TargetsNo targets recorded. Patient Instructions Encounter Date Encounter Id Patient Instructions Last Modified By Organization Details Last Modified Time 07/31/2023 [id number] physical therapy * - Diagnosis: Right total knee arthroplasty Evaluate and treat as indicated to reduce pain and to improve strength, mobility, stability, range of motion, and function. Please teach a home exercise plan and incorporate PT into patient's exercise routine. 2-3 sessions weekly for 6-8 weeks. [email or web address] Not available 08/07/2023 10:21:36 10/26/2023 [id number] AP, lateral, and patellar radiographs of the right knee taken today demonstrate satisfactory position and alignment of components following right total knee replacement. Not available 10/26/2023 14:46:55 Reason for Referral None Reported. Problems Name Problem SNOMED Code Status Onset Date Resolution Date Notes Provider Name and Address Organization Details Recorded Time Problem 10263080 Active No known active problems Not Available [facility] 5 23:49:53 Arthritis of left knee joint 34214799825 92056 Active 2022 KIET BANUELOS PA-C [address] [facility],[address], [place], [address] , [place] [facility], P 3 13:36:15 Osteoarth ritis of left knee joint 30632701736 9109 Active 2022 Jair Elizondo MD [address] [facility],[address], [place], [address] , [place] [facility], [facility] 3 12:39:11 History of gastroeso phageal reflux disease 57220866630 106 Active 2022 History of gastroeso phageal reflux (GERD) Not Available [facility] 5 23:49:50 Anemia 237559954 Active 2022 Anemia Not Available 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 5 23:49:51 History of hypertens ion 300949115 Active 2022 History of hypertens ion Not Available [facility] 5 23:49:52 Gout 19060685 Active 2022 Gout Not Available [facility] 5 23:49:52 History of left total knee replaceme nt 56134063993 28963 Active 2022 KIET BANUELOS PA-C [address], [place], [address] , [place] [facility], [facility] 3 16:29:32 Arthritis of knee 802424291 Active 2022 Jair Elizondo MD [address], [place], [address] , [place] [facility], P 3 14:49:11 Osteoarth ritis of right knee joint 76552595051 9100 Active 2023 KIET BANUELOS PA-C [address], [place], [address] , [place] [facility], P 4 14:38:19 History of total knee arthropla sty 04504883706 05 Active 2023 KIET BANUELOS PA-C [address], [place], [address] , [place] [facility], [facility] 4 16:34:46 Problem Notes None recorded. Procedures Surgical History Date Name Laterality Status Provider Name and Address Organization Details Recorded Time 07/19/19 24 TOTAL KNEE ARTHROPLASTY (SURG) completed Lisseth Aragon [place] - [facility], [facility] 07/20/2023 09:03:49 Knee Surgery completed [facility]ud[facility] Burnett [facility] 09/18/2022 13:07:58 Appendectomy completed [facility]udonne Burnett [facility] 09/18/2022 13:08:05 Imaging Results None recorded. Procedure Notes None recorded. Medical Equipment None Reported. Allergies Allergen ID Allergen Name Allergen Category Reaction Reaction Severity Criticality Documentation Date Start Date Code Code System Note Provider Name and Address Organization Details Recorded Time nickel environme nt Not available Not available Not available 07/24/2024 05666 29 RxNorm Mariah Dobson neema, [facility], P 11:49:38 4773 colistime thate sodium medicatio n Not available Not available Not available 09/18/2022 12577 RxNorm Dieudonne Burnett neema, [facility], P 13:06:49 16690 colistime thate sodium medicatio n Not available Not available Not available 01/06/20252020 03625 RxNorm Other react ion(s ): Not avail able Patie nt denie s Not Available [facility] 01:25:04 85779 amoxicill in medicatio n Not available Not available Not available 01/06/20252021 723 RxNorm React ion: Diarr hea, sever ity: Unkno wn Not Available [facility] 01:25:04 86986 fexofenad ine medicatio n Not available Not available Not available 01/06/20252021 31515 RxNorm Other react ion(s ): Low back pain Not Available [facility] 01:25:05 92420 colistin / hydrocort isone / neomycin / thonzoniu m medicatio n Not available Not available Not available 01/06/20252022 50266 5 RxNorm React ion: Hives , sever ity: Unkno wn;Re actio n: Swell ing, sever ity: Unkno wn;Re actio n: Rash, sever ity: Unkno wn;Sw ellin g in her Ear Not Available [facility] 5 01:25:05 57796 nickel sulfate Not available Not available Not available Not available 01/06/20252022 33631 RxNorm React ion: Rash, sever ity: Unkno wn Not Available [facility] 01:25:05 Medications Name Sig Start Date Stop Date Status Note LastModified by Organization Details LastModified Time ibuprofen 800 mg tablet Take 1 tablet (800 mg total) by mouth. 12/26 completed Not Available Not Available Not Available ondansetron HCl 4 mg tablet Take 1 tablet (4 mg total) by mouth daily as needed for nausea. 07/20 completed Not Available Not Available Not Available prednisone 20 mg tablet TAKE 1 TABLET BY MOUTH TWICE A DAY WITH MEALS FOR 5 DAYS 02/02 completed Not Available Not Available Not Available sennosides 8.6 mg-docusate sodium 50 mg tablet Take 1 tablet by mouth 2 (two) times a day. 2023 active Not Available Not Available Not Avai lable allopurinol 100 mg tablet TAKE 1 TABLET BY MOUTH TWICE A DAY active Not Available Not Available No t Available aspirin 81 mg tablet,tristan yed release Take 1 tablet (81 mg total) by mouth 2 (two) times a day after meals. 2023 active Not Available Not Available Not Avai lable tramadol 50 mg tablet 11/30 completed Not Available Not Available Not Available ketorolac 0.5 % eye drops INSTILL STARTING TWO DAYS BEFORE SURGERY 1 DROP 2 TIMES DAILY IN OPERATIVE EYE 07/30 completed Not Available Not Available Not Available cefadroxil 500 mg capsule active Not Available Not Available Not Available meloxicam 7.5 mg tablet Take 1 tablet (7.5 mg total) by mouth daily. 2023 active Not Available Not Available Not Avai lable famotidine 20 mg tablet Take 1 tablet (20 mg total) by mouth 2 (two) times a day. active Not Available Not Available No t Available lorazepam 0.5 mg tablet TAKE 1 TABLET EVERY DAY BY ORAL ROUTE NEEDED. active Not Available Not Available No t Available methocarbam ol 750 mg tablet Take 1 tablet (750 mg total) by mouth every 6 (six) hours as needed. 2023 active Not Available Not Available Not Avai lable doxycycline monohydrate 100 mg capsule TAKE 1 CAPSULE BY MOUTH TWICE A DAY FOR 7 DAYS active Not Available Not Available No t Available triamcinolo ne acetonide 40 mg/mL suspension for injection 05/11 completed Not Available Not Available Not Available pantoprazol e 40 mg tablet,tristan yed release active Not Available Not Available Not Available methylpredn isolone acetate 40 mg/mL suspension for injection 08/10 completed Not Available Not Available Not Available calcium 160 mg (as calcium carbonate 400 mg) chewable tablet See Instructi ons, 1 daily, 0 Refills, Maintenan ce 06/24 completed Not Available Not Available Not Available ibuprofen 200 mg tablet Take 2 tablets (400 mg total) by mouth every 6 (six) hours as needed for pain. 11/30 completed Not Available Not Available Not Available mirtazapine 15 mg tablet TAKE 1/2 TABLET DAILY BY MOUTH active Not Available Not Available No t Available zolpidem 10 mg tablet Take 10 mg by mouth every night at bedtime. 11/30 completed Not Available Not Available Not Available losartan 50 mg-hydrochl orothiazide 12.5 mg tablet TAKE 1 TABLET BY MOUTH EVERY DAY active Not Available Not Available No t Available colchicine 0.6 mg tablet TAKE 1 TABLET BY MOUTH TWICE A DAY 02/02 completed Not Available Not Available Not Available naproxen 500 mg tablet TAKE 1 TABLET BY MOUTH TWICE A DAY WITH MEALS FOR 10 DAYS 02/02 completed Not Available Not Available Not Available oxycodone 5 mg tablet TAKE 1 TABLET BY MOUTH EVERY 6 TO 8 HOURS NEEDED 10/25 completed Not Available Not Available Not Available mirtazapine 7.5 mg tablet TAKE 1 TABLET BY MOUTH EVERYDAY AT BEDTIME 03/16 completed Not Available Not Available Not Available nitrofurant oin monohydrate /macrocryst als 100 mg capsule 11/30 completed Not Available Not Available Not Available Pepcid active Not Available Not Availa ble Not Available lidocaine (PF) 10 mg/mL (1 %) injection solution 05/11 completed Not Available Not Available Not Available tranexamic acid 650 mg tablet Take 3 tablets (1,950 mg total) by mouth daily. 2023 active Not Available Not Available Not Naz hung COVID-19 At-Home Test kit USE DIRECTED 10/25 completed Not Available Not Available Not Available Vitals Date Recorded Body mass index (BMI) Body weight Body height Provider Name and Address Organization Details Last Updated DateTime 07/19/2023 25.28 kg/m2 69733 g 156.2 cm Not Available [facility] 01/06/2025 00:57:05 Date Recorded Heart rate Respiratory rate Oxygen saturation Body temperature Systolic And Diastolic Provider Name and Address Organization Details Last Updated DateTime 73 /min 17 /min 98 % 98.204 [degF] 133/68 mm[Hg] Not Available [facility] 00:57:05 Social History None recorded. Functional Status Question Answer Note LastModified by Organizat ion Details LastModified Time Do you use any illicit or recreational drugs? No [email or web address] Information not available 09/18/2022 Do you or have you ever used any other forms of tobacco or nicotine? No [email or web address] Information not available 09/18/2022 What is your level of alcohol consumption? None [email or web address] Information not available 09/18/2022 Mental Status None recorded. Family History Relationship Description Onset Age of this Age Resolved Age Notes LastModified by Organization Details LastModified Time Sister Family history of malignant neoplasm [email or web address] Not available 08/2022 13:07:39 Brother Diabetes mellitus [email or web address] Not available 08/2022 13:07:51 Mother Diabetes mellitus [email or web address] Not available 08/2022 13:07:51 Medical History Condition Response Gout Y Reflux/GERD Y Hypertension Y Gynecological HistoryNo gynecological history recorded. Obstetrics History GPAL:G 0 P 0 0 0 0 Past Encounters Encounter ID Performer Location Encounter Start Date Encounter Closed Date Diagnosis/Indication Diagnosis SNOMED-CT Code Diagnosis ICD10 Code Diagnosis IMO Codes Diagnosis Note [id number] PATRICIO BAJWAfox [address] [place] [address] 09/18/2022 12:54:09 09/18/2022 13:38:15 Pain of left knee joint 2958044847 76352 M25.562 Arthritis of left knee joint 7559878823 716974 M13.862 [id number] MD [facility]AMI De [facility] [address] [facility] [address] [place] [address] 09/22/2022 10:28:20 09/22/2022 11:45:37 Osteoarthritis of left knee joint 8750484553 69736 M17.12 Arthritis of knee 132651 002 M13.869 [id number] [facility]ICIO BAJWA [facility] [address] [place] [address] 01/01/2023 16:15:19 01/01/2023 16:29:50 History of left total knee replacement 2488759626 163534 Z96.652 [id number] MD KAMI De Leon [facility] [address] [place] [address] 02/02/2023 14:13:38 02/02/2023 14:53:54 Aftercare 840043986 Z47.1 History of left total knee replacement 7619270108 656368 Z96.652 [id number] MD KAMI De Leon [facility] [address] [place] [address] 03/16/2023 13:56:48 03/16/2023 15:05:32 History of left total knee replacement 3931358742 342579 Z96.652 Pain of ri ght knee joint 7562967666 89598 M25.561 Osteoarthr itis of right knee joint 5399283086 05104 M17.11 Arthritis of knee 963505 002 M13.869 [id number] PATRICIO BAJWA [address] [address] 07/12/2023 08:37:04 07/12/2023 13:10:49 Osteoarthritis of right knee joint 5957287156 64890 M17.11 Additional diagnosis detail: Primary osteoarthr itis of right knee [id number] PATRICIO BAJWA [address] [address] 07/31/2023 16:20:22 07/31/2023 16:38:05 Osteoarthritis of right knee joint 9965888387 88056 M17.11 Additional diagnosis detail: Primary osteoarthr itis of right knee History of total knee arthroplasty 0199186790 105 Z96.651 Additional diagnosis detail: Status post right knee replacemen t [id number] MD KAMI De Leon [place] [address] [facility] [address] [place] [address] 08/28/2023 13:48:13 08/28/2023 14:19:45 History of left total knee replacement 2710334145 994463 Z96.652 History of total knee arthroplasty 2072628973 105 Z96.651 [id number] MD KAMI De Leon [facility] [address] [address] 10/26/2023 14:15:45 10/26/2023 14:57:56 History of right total knee replacement 3202970381 803918 Z96.651 Additional diagnosis detail: History of total right knee replacemen t History of total knee arthroplasty 2040778713 105 Z96.651 Osteoarthr itis of right knee joint 3976767354 79093 M17.11 [id number] PATRICIO BAJWA [facility] [address] [address] 07/24/2024 11:38:11 07/24/2024 12:01:41 History of right total knee replacement 2475508005 573159 Z96.651 [id number] Health Concerns Section Related Observation LastModified by Organization Detai ls LastModified Time None Recorded Concern Status LastModified by Organization Details LastModified Time None Recorded Advance Directives Directive None Recorded Payers Insurance Date Sequence Insurance Name Policy Number Policy Leon Covered Member ID Leon Member ID Guarantor Name 07/21/2024 2 [facility] - PLAN 1 (MEDICARE SUPPLEMENT) [id number] 1 Bonita Kirby [id number] Bonita Kirby 07/21/2024 1 MEDICARE B-[place]: [facility] R2G [facility] Bonita Bravooney [id number] Bonita Kirby OBGyn Episode No OBEpisode recorded.
--- OUTSIDE RECORDS SUMMARY | 2025-03-06 13:20 | XMS_ITS ---
Author Name [facility] Organization Unknown History of Medication Use Medication Directions Dispensed Refills Start Date End Date Status HYDROcodone-acetaminophe n (NORCO) 5-325 mg per tablet Take 1 tablet by mouth 4 times daily (every 6 hours) as needed for severe pain. Max Daily Amount: 4 tablets 5 active ondansetron (Zofran) 4 MG tablet Take 1 tablet (4 mg total) by mouth daily as needed for nausea. 4 07/21/19 25 active pantoprazole (Protonix) 40 MG tablet Take 1 tablet (40 mg total) by mouth daily for 30 days. 4 08/20/19 24 active tranexamic acid (LYSTEDA) 650 MG tablet Take 3 tablets (1,950 mg total) by mouth daily. 4 07/23/19 24 active dexamethasone (DECADRON) tablet 8 mg 8 mg, Oral, Once, On Sun07/20/23 at 0800, For 1 dosePOD #1 in the morning. Hold for patients with the following procedures: I&D w/ or w/o poly exchange, resection arthroplasty, removal of prosthesis 4 07/20/19 24 completed losartan (COZAAR) 50 mg, hydroCHLOROthiazide (MICROZIDE) 12.5 mg for HYZAAR 50/12.5 Oral, Daily, First dose on Sun07/20/23 at 0900Give both components as replacement for HYZAAR 50/12.5 4 active aspirin EC 81 MG EC tablet Take 1 tablet (81 mg total) by mouth 2 (two) times a day after meals. 4 08/30/19 24 active acetaminophen (TYLENOL EXTRA STRENGTH) 500 MG tablet 1,000 mg 1,000 mg, Oral, Once, On Sun07/19/23 at 0815, For 1 dose, Pre-op 4 07/19/19 completed ceFAZolin (ANCEF) injection 2 g 2 g, Intravenous, Every 8 hours, First dose on Anusha 07/19/23 at 1800, For 1 dose, PACU/FloorGive 8 hours after the intra-op cefazolin dose. For Adults, if ordered IV then reconstitute each 1GM vial with 10mL sterile water or normal saline and administer IV Push over 3-5 minutes. 07/19/19 completed HYDROmorphone (DILAUDID) injection 0.5 mg 0.5 mg, Intravenous, Every 4 hours PRN, severe pain (7-10), Starting on Sun07/19/23 at 1157, PACU/FloorAdmini ster IV push over 2-3 minutes. 07/19/19 active meloxicam (MOBIC) tablet 7.5 mg 7.5 mg, Oral, Daily, First dose on Sun07/20/23 at 0900, PACU/Floor 07/19/19 active tranexamic Acid 1,000 mg in sodium chloride 0.9% (NS) 100 mL IVPB-MBP 1,000 mg, Intravenous, Administer over 20 Minutes, Once, On Sun07/19/23 at 1200, For 1 dose, PACU/Phase 1Administer within 30 minutes arrival to PACU for OR 4 07/19/19 completed alum & mag hydroxide-simethicone suspension 30 mL 30 mL, Oral, Every 6 hours PRN, indigestion, Starting on Sun07/19/23 at 1426 4 active benzocaine-menthol (CEPACOL) lozenge 1 lozenge 1 lozenge, Oral, Every 2 hours PRN, sore throat, Starting on Sun07/19/23 at 1426 4 active bisacodyl (DULCOLAX) suppository 10 mg 10 mg, Rectal, Daily as needed, constipation, Starting on Sun07/19/23 at 1426Hold for patients with history of IBS, IBO, Ileostomy. 4 active calcium carbonate (TUMS) chewable tablet 500 mg 500 mg, Chew, Every 4 hours PRN, indigestion, heartburn, Starting on Anusha 07/19/23 at 1426 4 active famotidine (PEPCID) tablet 20 mg 20 mg, Oral, 2 times daily, First dose on Anusha 07/19/23 at 1800Please select an indication: GERDIs this a home medication or a new start? Home Medication 4 active lactated ringers infusion 100 mL/hr, Intravenous, Continuous, Starting on Anusha 07/19/23 at 0815, Pre-op 4 active LORazepam (ATIVAN) tablet 0.5 mg 0.5 mg, Oral, Daily as needed, anxiety, Starting on Anusha 07/19/23 at 1426 4 active magnesium hydroxide (MILK OF MAGNESIA) 400 MG/5ML suspension 30 mL 30 mL, Oral, Daily as needed, constipation, Starting on Anusha 07/19/23 at 1426Hold for patients with history of IBS, IBO, Ileostomy. 4 active methocarbamol (ROBAXIN) 750 MG tablet Take 1 tablet (750 mg total) by mouth every 6 (six) hours as needed. 4 active metoclopramide (REGLAN) injection 10 mg 10 mg, Intravenous, Every 6 hours PRN, nausea, vomiting, Starting on Anusha 07/19/23 at 1157, PACU/FloorTo be given if zofran is ineffective. 4 active ondansetron (ZOFRAN) injection 4 mg 4 mg, Intravenous, Every 6 hours PRN, nausea, vomiting, Starting on Anusha 07/19/23 at 1157, PACU/FloorTo be given first. 4 active oxyCODONE (ROXICODONE) 5 MG immediate release tablet Take 1 tablet (5 mg total) by mouth every 4 (four) hours as needed. 4 active oxyCODONE (ROXICODONE) 5 MG immediate release tablet 10 mg 10 mg, Oral, Every 4 hours PRN, moderate pain (4-6), Starting on Anusha 07/19/23 at 1157, PACU/Floor 4 active senna-docusate (PERICOLACE) 8.6-50 MG Take 1 tablet by mouth 2 (two) times a day. 4 active Sodium Phosphate 7-19 g (FLEET) Enema 118 mL 1 enema, Rectal, Daily as needed, constipation, Starting on Anusha 07/19/23 at 1426Hold for patients with history of IBS, IBO, Ileostomy. Avoid use in elderly (>65y.o) and/or renal dysfunction, can lead to serious electrolyte disturbances, worsening renal function requiring AUTOMOBILE BRAKES BONDER. 4 active mirtazapine (REMERON) 15 MG tablet TAKE 1/2 TABLET DAILY BY MOUTH 4 active mirtazapine (REMERON) 15 MG tablet TAKE 1/2 TABLET DAILY BY MOUTH 4 active mirtazapine (REMERON) tablet 7.5 mg 7.5 mg, Oral, Every Night at Bedtime, First dose on Anusha 07/19/23 at 2200 3 06/25/19 24 active allopurinol (ZYLOPRIM) 100 MG tablet Take 1 tablet (100 mg total) by mouth 2 (two) times a day. 1 06/25/19 24 aborted allopurinol (ZYLOPRIM) 100 MG tablet 1 tablet (100 mg total) 2 (two) times a day. 1 active losartan-hydrochlorothia zide (HYZAAR) 50-12.5 MG per tablet Take 1 tablet by mouth daily. 1 active losartan-hydrochlorothia zide (HYZAAR) 50-12.5 MG per tablet Take 1 tablet by mouth daily. 1 active Calcium Carbonate Antacid 400 MG CHEW See Instructions, 1 daily, 0 Refills, Maintenance 2 06/25/19 24 aborted COVID-19 At-Home Test kit USE DIRECTED 10/26/19 24 active oxycodone 5 mg tablet TAKE 1 TABLET BY MOUTH EVERY 4 HOURS 10/26/19 24 completed ketorolac 0.5 % eye drops INSTILL ONE DROP TWICE A DAY INTO RIGHT EYE FOR 3 WEEKS STARTING AFTER EACH SURGERY. 07/31/19 24 active ketorolac 0.5 % eye drops INSTILL STARTING TWO DAYS BEFORE SURGERY 1 DROP 2 TIMES DAILY IN OPERATIVE EYE 07/31/19 24 completed lorazepam 0.5 mg tablet TAKE 1 TABLET EVERY DAY BY ORAL ROUTE NEEDED. 07/31/19 24 active lorazepam 0.5 mg tablet TAKE 1 TABLET EVERY DAY BY ORAL ROUTE NEEDED. 07/31/19 24 completed docusate sodium (COLACE) 250 MG capsule Take 1 capsule (250 mg total) by mouth daily as needed. 06/28/19 24 aborted docusate sodium (COLACE) 250 MG capsule Take 1 capsule (250 mg total) by mouth daily as needed. 06/28/19 24 aborted cefadroxil (DURICEF) 500 MG capsule 06/25/19 24 aborted hydroCHLOROthiazide (MICROZIDE) 12.5 MG capsule Take 1 capsule (12.5 mg total) by mouth. 06/25/19 aborted Melatonin 2.5 MG CHEW Chew 6 mg by mouth. 06/25/19 24 aborted naproxen (NAPROSYN) 500 MG tablet TAKE 1 TABLET BY MOUTH TWICE A DAY WITH MEALS FOR 10 DAYS 06/25/19 24 aborted mirtazapine 7.5 mg tablet TAKE 1 TABLET BY MOUTH EVERYDAY AT BEDTIME 03/16/20 23 completed mirtazapine 7.5 mg tablet TAKE 1 TABLET BY MOUTH EVERYDAY AT BEDTIME 03/16/20 23 completed colchicine 0.6 mg tablet TAKE 1 TABLET B Y MOUTH TWICE A DAY 02/03/20 23 completed colchicine 0.6 mg tablet TAKE 1 TABLET B Y MOUTH TWICE A DAY 02/03/20 23 completed meloxicam 7.5 mg tablet 02/03/20 23 active meloxicam 7.5 mg tablet 02/03/20 23 active naproxen 500 mg tablet TAKE 1 TABLET BY MOUTH TWICE A DAY WITH MEALS FOR 10 DAYS 02/03/20 23 active naproxen 500 mg tablet TAKE 1 TABLET BY MOUTH TWICE A DAY WITH MEALS FOR 10 DAYS 02/03/20 23 completed ondansetron HCl 4 mg tablet 02/03/20 23 active ondansetron HCl 4 mg tablet 02/03/20 23 active oxycodone 5 mg tablet TAKE 1 TABLET BY MOUTH EVERY 6 TO 8 HOURS NEEDED 02/03/20 23 active pantoprazole 40 mg tablet,delayed release 02/02 23 active pantoprazole 40 mg tablet,delayed release 02/02 23 active prednisone 20 mg tablet TAKE 1 TABLET BY MOUTH TWICE A DAY WITH MEALS FOR 5 DAYS 02/03/20 23 active prednisone 20 mg tablet TAKE 1 TABLET BY MOUTH TWICE A DAY WITH MEALS FOR 5 DAYS 02/03/20 23 completed allopurinol 100 mg tablet TAKE 1 TABLET BY MOUTH TWICE A DAY active allopurinol 100 mg tablet TAKE 1 TABLET BY MOUTH TWICE A DAY active cefadroxil 500 mg capsule active cefadroxil 500 mg capsule active COVID-19 At-Home Test kit USE DIRECTED active doxycycline monohydrate 100 mg capsule TAKE 1 CAPSULE BY MOUTH TWICE A DAY FOR 7 DAYS active famotidine 20 mg tablet TAKE 1 TABLET BY MOUTH TWICE A DAY active losartan 50 mg-hydrochlorothiazide 12.5 mg tablet TAKE 1 TABLET BY MOUTH EVERY DAY active losartan 50 mg-hydrochlorothiazide 12.5 mg tablet TAKE 1 TABLET BY MOUTH EVERY DAY active mirtazapine 15 mg tablet TAKE 1/2 TABLET DAILY BY MOUTH active mirtazapine 15 mg tablet TAKE 1/2 TABLET DAILY BY MOUTH active tranexamic acid 650 mg tablet active tranexamic acid 650 mg tablet active Acetaminophen (TYLENOL ARTHRITIS PAIN PO) Take 2 tablets by mouth every 8 (eight) hours. active Calcium Carb-Cholecalciferol (CALCIUM 600+D3 PO) Take 2 tablets by mouth 2 (two) times a day. active famotidine (PEPCID) 20 MG tablet Take 1 tablet (20 mg total) by mouth 2 (two) times a day. active LORazepam (ATIVAN) 0.5 MG tablet TAKE 1 TABLET EVERY DAY BY ORAL ROUTE NEEDED. active LORazepam (ATIVAN) 0.5 MG tablet TAKE 1 TABLET EVERY DAY BY ORAL ROUTE NEEDED. active Multiple Vitamin (MULTI VITAMIN DAILY PO) Take by mouth. act yossi Multiple Vitamin (MULTI VITAMIN DAILY PO) Take by mouth. act yossi Allergies Allergen Reaction Severity Comment Documented Date Source Status NICKEL RASH 11/30/2022 [facility] active [id number]- THONZONIUM RASH Swelling in her Ear 08/11/2022 [facility] active NUTS OTHER (SEE COMMENTS) peanuts 05/11/2021 [facility] active COLISTIMETHATE Other reaction(s): Not available Patient denies 08/10/2020 [facility] active AMOXICILLIN DIARRHEA [facility] FEXOFENADINE Other reaction(s): Low back pain [facility] COLY-MYCIN M [facility]ON[facility] Problems Problem Status Onset Date Problem Type Date of Resolution Source Carpal tunnel syndrome of right wrist active EncounterDiagnosisAct [facility] Nonruptured cerebral aneurysm active 2022-11-30 ProblemAct [facility] History of gastroesophageal reflux (GERD) active 2022-11-30 ProblemAct [facility] History of gout active EncounterDiagnosisAct [facility] History of hypertension active 2022-11-30 ProblemAct [facility] History of hyperlipidemia active EncounterDiagnosisAct [facility] SFRAN Anemia active 2022-11-30 ProblemAct [facility]RA N Osteoarthritis of left knee active 2022-11-30 ProblemAct [facility] Gout active 2022-11-30 ProblemAct [facility] N Osteoarthritis of right knee, unspecified osteoarthritis type active EncounterDiagnosisAct [facility]NEMG History of anemia active EncounterDiagnosisAct [facility] Osteoarthritis of right knee active 2023-07-19 ProblemAct [facility] Arthritis of left knee active 2022-09-18 ProblemAct [facility] Arthritis of knee active 2023-03-16 ProblemAct [facility] History of left total knee replacement active 2023-01-01 ProblemAct [facility] Osteoarthritis of right knee joint active 2023-07-11 ProblemAct [facility] History of total knee arthroplasty active 2023-07-31 ProblemAct [facility] Osteoarthritis of left knee joint active 2022-09-22 ProblemAct [facility] Encounters Encounter Type Encounter Reason Primary Diagnosis Location Date Ambulatory Carpal tunnel syndrome, right upper limb Carpal tunnel syndrome, right upper limb [facility] 01/21/2025 Ambulatory Carpal tunnel syndrome, right upper limb Carpal tunnel syndrome, right upper limb [facility] 12/10/2024 Ambulatory [facility] Carpal tunnel syndrome, right upper limb [facility] 11/27/2024 Ambulatory Carpal tunnel syndrome, right upper limb Carpal tunnel syndrome, right upper limb [facility] 10/01/2024 Ambulatory [facility] [place] 07/24/2024 Ambulatory [facility] 07/23/2024 Ambulatory [facility] 07/23/2024 Ambulatory [facility] 10/26/2023 Ambulatory [facility] 07/31/2023 Ambulatory [facility] 07/31/2023 Ambulatory [facility] 07/31/2023 Ambulatory [facility] 07/30/2023 Ambulatory Encounter for other preprocedural examination [place] [facility] [place] [facility] [place]23 [place] [facility] [place] [facility] [place] 05/23/2023 Ambulatory [facility] 01/26/2023 Ambulatory [facility] 12/29/2022 Ambulatory Cerebral aneurysm, nonruptured [place]erebral [place] [facility] [place] [facility] [place] 12[place]14[place]22 [place] [facility] [place] [facility] [place] 10/03/2022 Ambulatory [facility] [place] 09/19/2022 Ambulatory [facility] 09/18/2022 Ambulatory [facility] 09/14/2022 Ambulatory [facility] 09/12/2022 Ambulatory [facility] 09/12/2022 Care Team Organization Name Specialty Phone Email Start Date End [facility] te [facility] Primary Care 12/10/2024 02/19/2025 [facility] 10/02/2024 [facility] ANDREY WHITEHEAD Primary Care 10/01/2024 [facility] NO PCP Primary Care 10/01/2024 [facility] PCP Rn Gyn 10/01/2024 02/19/2025 [facility] [place] [facility] [place] [facility] [place] [facility]NAN[facility] PAUL Primary Care 11/23/2022 11/23/2022
--- OUTSIDE RECORDS SUMMARY | 2025-03-06 13:20 | XMS_ITS | Encounter Summary ---
Author Organization [facility] Address [address] [place] [address] Care Team Providers Care Java Front End Web Developer Name Role Phone Tana Hernadez MD Primary Care Provider [phone]- [phone] Reason for Referral * Outpatient Surgery (Routine) - Closed Specialty Diagnoses / Procedures Referred By Eyal regan Referred To Contact Hand Surgery Diagnoses Carpal tunnel syndrome of right wrist Massimo Villegas MD [address] [place] [address] Phone: tel: fax: Referral ID Status Reason Start Date Expiration Date Visits Re quested Visits Authorized [id number] Closed 10/02/2024 10/03/2025 1 1 Question Answer Primary Procedure: [id number] - Carpal tunnel Additional Procedure(s): None Procedure: RIGHT CARPAL TUNNEL RELEASE Surgery Date 11/27/2024 Laterality: Right Performing Location: [facility] [place] Duration (Mins): 30 Admission: Outpatient Anesthesia: MAC Workers Comp? No Encounter Details Date Type Department Care Team (Late st Contact Info) Description 10/02/2024 CC Surg [facility] [address] [id number] Massimo Villegas MD [address] [place] [address] Carpal tunnel syndrome of right wrist (Primary Dx) Social History Tobacco Use Types Packs/Day Years Used Date Smoking Tobacco: Never Assessed Comments Unknown Sex and Gender Information Value Date Recorded Sex Assigned at Female 09/25/2024 1:54 PM EDT Legal Sex Female 1:16 PM EDT Gender Identity Female 09/25/2024 1:54 PM EDT Sexual Orientation Asexual 09/25/2024 1: 54 PM EDT documented as of this encounter Plan of Treatment Scheduled Referrals Name Type Priority Associated Diagnoses Orde r Schedule RIGHT CARPAL TUNNEL RELEASE Outpatient Referral Routine Carpal tunnel syndrome of right wrist Ordered: 10/02/2024 documented as of this encounter Visit Diagnoses Diagnosis Carpal tunnel syndrome of right wrist- Primary documented in this encounter Care Teams [employer] Front End Web Developer Relationship Specialty Start Date End Date Tana Hernadez MD [address] [place] [address] PCP - General Internal Medicine 10/01/24 documented as of this encounter
== END 2025-03-06 14:16 | disposition home or self-care (01) ==
LOC: HO.HMCHD 12:58
PROVIDERS: PCP Internal Medicine; Visit Provider Internal Medicine
DX: Z00.00 Encounter for general adult medical examination without abnormal findings (principal); I10 Essential (primary) hypertension; R73.01 Impaired fasting glucose; M10.9 Gout, unspecified

== ENCOUNTER → 2025-03-06 12:57 | Outpatient (BNVA) | payer MEDICARE, OTHER, SELFPAY | PROVIDERS: PCP Internal Medicine; Visit Provider Internal Medicine | DX: Z13.31 Encounter for screening for depression (principal) | CPT/HCPCS: 96127 ==

== ENCOUNTER 2025-03-20 11:33 | Outpatient (REF) | payer MEDICARE, OTHER, SELFPAY ==
[2025-03-20 18:35] LABS: MANUAL DIFF FLAG NO
[2025-03-20 18:41] LABS: Hematocrit 36.3 % (37.0-47.0); Hemoglobin 10.9 g/dl (12.0-16.0); Imm Gran Abs Auto 0.03 X10*3/uL (0.00-0.03); Imm Gran Pct Auto 0.3 % (0.0-0.4); Lymphocytes Absolute Auto 2.3 X10*3/uL (1.2-4.9); Mean Corpuscular HGB Conc 30.0 g/dl (31.0-35.0); Mean Corpuscular Hemoglobin 22.2 pg (27.0-33.0); Mean Corpuscular Volume 73.9 fL (80.0-98.0); NRBC Abs Auto 0.000 X10*3/uL (0.0-0.012); NRBC Pct Auto 0.0 /100WBC (0.0-0.2); Platelet Count 288 X10*3/uL (160-400); Red Blood Count 4.91 X10*6/uL (4.20-5.50); White Blood Count 10.5 X10*3/uL (4.8-10.8)
[2025-03-20 19:15] LABS: Microalbum/Creatinine Ratio Ur 182.3 ug/mg cr (<30)
[2025-03-20 19:36] LABS: Alanine Aminotransferase 11 U/L (0-31); Albumin Level 4.4 g/dL (3.5-5.0); Alkaline Phosphatase 76 U/L (39-117); Anion Gap 13 (12-20); Aspartate Amino Transferase 27 U/L (5-31); Blood Urea Nitrogen 12 mg/dL (9-16); Calcium 10.2 mg/dL (8.4-10.2); Carbon Dioxide 26 mmol/L (22-29); Chloride 106 mmol/L (96-108); Cholesterol 199 mg/dL (<200); Estimated Glomerular Filt Rate > 60; HDL Cholesterol 74 mg/dL (>40); Potassium 3.1 mmol/L (3.3-5.1); Sodium 142 mmol/L (135-145); Total Protein 8.0 g/dL (6.5-8.0); Triglycerides 65 mg/dL (<150); Uric Acid 3.5 mg/dL (2.4-5.7)
== END 2025-03-20 11:34 | disposition home or self-care (01) ==
LOC: HO.HKASLDS 11:33
PROVIDERS: PCP Internal Medicine; Visit Provider Internal Medicine
DX: I10 Essential (primary) hypertension (principal); R73.01 Impaired fasting glucose; M10.9 Gout, unspecified
CPT/HCPCS: 36415; 80053; 80061; 82043; 82570; 83036; 84443; 84550; 85025

== ENCOUNTER 2025-03-27 11:14 | Outpatient (REF) | payer MEDICARE, OTHER, SELFPAY ==
[2025-03-27 14:36] LABS: Iron 41 mcg/dL (30-160); Percent Iron Saturation 17 % (15-50); Total Iron Binding Capacity 245 mcg/dL (228-428); Unsaturated Iron Binding 204 ug/dL
[2025-03-27 14:43] LABS: Ferritin 123 ng/mL (10-250)
== END 2025-03-27 11:15 | disposition home or self-care (01) ==
LOC: HO.HKASLDS 11:14
PROVIDERS: PCP Internal Medicine; Visit Provider Internal Medicine
DX: E87.6 Hypokalemia (principal); D64.9 Anemia, unspecified
CPT/HCPCS: 36415; 82728; 83540; 84132